=== PATIENT | female | born 1965 | race Caucasian/White ===

== ENCOUNTER 2016-11-11 18:54 | Emergency (ER) | payer OTHER ==
[~2016-11-11] VITALS: Ht 154.9 cm; Wt 62.7 kg
[~2016-11-11 18:54] MED LIST: ALBUTEROL17 GM INH; ATENOLOL25 MG PO; DOXYCYCLINE150 MG PO; ESCITALOPRAM OXA5 MG PO; IMITREX; LISINOPRIL PO; LISINOPRIL-HCTZ1 T15 PO; PAXIL PO; PERCOCET5/325 PO; PHENERGAN PO; PREDNISONE PO; ULTRAM PO; VOLTAREN75 MG PO; ZOCOR PO
[2016-11-11 20:10] LABS: URINE SOURCE CLEAN CATCH
[2016-11-11 20:12] LABS: URINE APPEARANCE TURBID; URINE BILIRUBIN NEG (NEG); URINE BLOOD 3+ (NEG); URINE COLOR YELLOW; URINE GLUCOSE NEG (NORM); URINE KETONE NEG (NEG); URINE LEUKOCYTE ESTERASE 3+ (NEG); URINE NITRATE POS (NEG); URINE PROTEIN 2+ (NEG); URINE SPECIFIC GRAVITY 1.015 (1.003-1.035); URINE UROBILINOGEN 0.2 MG/DL (NORM)
[2016-11-11 20:13] LABS: MICRO INDICATED? YES
[2016-11-11 20:16] LABS: CULTURE INDICATED? YES; URINE BACTERIA 1+ (NEG)
[2016-11-11 20:17] LABS: URINE SQUAMOUS EPITHELIAL CELL FEW /[HPF]; URINE TRANSITIONAL EPI CELLS FEW /[HPF]; URINE WBC 100-200 /[HPF] (0-5)
== END 2016-11-11 20:42 | disposition home or self-care (01) ==
LOC: SED 18:54
PROVIDERS: Nurse Practitioner Family
DX: N39.0 Urinary tract infection, site not specified (principal); E78.5 Hyperlipidemia, unspecified; Z88.0 Allergy status to penicillin; Z79.899 Other long term (current) drug therapy
CPT/HCPCS: 81003; 87086; 87088; 87186; 99283